=== PATIENT | female | born 1970 | race Caucasian/White ===

== ENCOUNTER 2024-08-17 17:34 | Emergency (ER) | payer OTHER, SELFPAY ==
[2024-08-17 17:35] VITALS: BMI 29.2
[2024-08-17 17:40] VITALS: BP 154/90; PULSE 97; RESP 20; TEMP 36.9; O2SAT 96
--- NOTE | 2024-08-17 17:40 | PD.EDRME ---
Rapid Medical Screening Exam RME Arrival date/time: 08/17/24 17:34 54-year-old female presents to the emergency department complains of nosebleed Chief Complaint: Epistaxis/Nasal Foreign Body
[2024-08-17 18:11] LABS: Basophils # (Auto) 0.1 Thou/mm3 (0.0-0.2); Basophils % (Auto) 1 % (0-2.5); Eosinophils # (Auto) 0.3 Thou/mm3 (0.0-0.5); Eosinophils % (Auto) 3 % (0-10); Hematocrit 41.8 % (36.0-46.0); Immature Granulocytes % (Auto) 0 % (0-0); Immature Granulocytes Auto 0.01 Thou/mm3 (0.00-0.00); Lymphocytes # (Auto) 2.7 Thou/mm3 (1.0-4.8); Lymphocytes % (Auto) 36 % (10-50); Mean Corpuscular HGB Conc 33.5 g/dl (31.0-37.0); Mean Corpuscular Hemoglobin 29.1 pg (25.0-35.0); Mean Corpuscular Volume 87 fL (80-100); Monocytes # (Auto) 0.6 Thou/mm3 (0.0-0.8); Monocytes % (Auto) 8 % (0-12); Neutrophils # (Auto) 3.9 Thou/mm3 (1.8-7.7); Neutrophils % (Auto) 52 % (37-80); Nucleated Red Blood Cell % 0 /100 WBC (0); Platelet Count 279 Thou/mm3 (140-440); RDW Standard Deviation 44.4 fL (36.4-46.3); Red Blood Count 4.81 Miln/mm3 (4.00-5.20); White Blood Count 7.6 Thou/mm3 (3.6-11.0)
[2024-08-17 18:28] LABS: INR 1.1 (0.9-1.3); Partial Thromboplastin Time 26.1 Seconds (22.0-36.0); Prothrombin Time 11.5 Seconds (9.0-12.2)
[2024-08-17 18:31] LABS: Alanine Aminotransferase 9 U/L (10-49); Albumin, Serum 4.5 gm/dL (3.5-5.0); Albumin/Globulin Ratio 1.8 (1.2-2.2); Alkaline Phosphatase 65 U/L (46-116); Anion Gap 10 (7-16); Aspartate Amino Transferase 15 U/L (0-34); BUN/Creatinine Ratio 11 Ratio (12-20); Bilirubin,Total 0.4 mg/dL (0.3-1.2); Blood Urea Nitrogen 11 mg/dL (9-23); Calcium 9.7 mg/dL (8.3-10.6); Calcium (Corrected) 9.7 mg/dL (8.5-10.1); Carbon Dioxide 26.5 mMol/L (20.0-31.0); Chloride 108 mMol/L (98-107); Estimated Creatinine Clearance 56.6 mL/min (>60); Globulin 2.5 gm/dL (2.3-3.5); Glucose 107 mg/dL (74-106); Osmolality,Calculated 286 (275-295); Potassium 3.7 mMol/L (3.4-5.1); Sodium 144 mMol/L (136-145); eGFR > 60 See Note
--- NOTE | 2024-08-17 19:38 | EDNOTE_ITS ---
ED Epistaxis RME/HPI General Chief complaint: Epistaxis/Nasal Foreign Body Stated complaint: NOSE BLLED X20 MINS Time Seen by Provider: 08/17/24 18:12 Arrival date/time: 08/17/24 17:34 RME / HPI RME / HPI Narrative: 54-year-old female presents to the emergency department complains of nosebleed onset of symptoms few minutes prior to ER visit as symptoms bleeding that lasted for 20 minutes. Patient denies any trauma or fall. Denies any fever denies any shortness of breath. Patient is not taking any blood thinner. Patient told me that she is having a lot of stress lately she is not taking any blood pressure medications. Related Data Allergies Allergy/AdvReac Type Severity Reaction Status Date / Time pseudoephedrine Allergy Mild Verified 03/20/09 17:00 NKA Allergy Unknown Uncoded 03/07/03 00:48 Review of Systems Review of Systems Narrative Review of Systems: Review of system reviewed and within normal limits except mentioned in HPI ED Exam Narrative Physical exam: VITAL SIGNS: Reviewed. GENERAL APPEARANCE: Alert and interactive, follows commands, no acute distress, HEAD AND FACE: Non-traumatic. ENT: PERRL, pink conjunctivitis, eyelid no trauma, Mucous membrane moist. NECK: Supple, nontender, no nuchal rigidity. CHEST: No tenderness, no crepitus, no paradoxical movement, no retractions. LUNGS: Clear, well ventilated, symmetric, no rales, no wheezing, no ronchi, no stridor, good breath sounds bilaterally. HEART: Regular rate, regular rhythm, no murmur, no gallops. ABDOMEN: Soft, positive bowel sounds, nondistended, no guarding, nontender, no rebound, no masses, RECTAL: Deferred. GENITAL: Deferred. NEUROLOGICAL: Gross motor function intact sensory function intact, Appropriate for age. MUSCULOSKELETAL: low back nontender, full range of motion. EXTREMITIES: Nontender, full range of motion. SKIN: Color pink, dry, no rash, no lacerations, no abrasions, no contusions. LYMPHATICS: Deferred. Course Quality Measures none Orders Category Date Time Status CBC Stat Lab 08/17/24 17:53 Completed Comprehensive Metabolic Panel Stat Lab 08/17/24 17:53 Completed Partial Thromboplastin Time Stat Lab 08/17/24 17:53 Completed Prothrombin Time with INR Stat Lab 08/17/24 17:53 Completed Vital Signs Vital signs: Vital Signs Temperature 98.5 F 08/17/24 17:40 Pulse Rate 97 08/17/24 17:40 Respiratory Rate 20 08/17/24 17:40 Blood Pressure 154/90 H 08/17/24 17:40 Pulse Oximetry (%) 96 08/17/24 17:40 Oxygen Delivery Method Room Air 08/17/24 17:40 Epistaxis MDM Narrative MDM Narrative:: 54-year-old female presents to the emergency department complains of nosebleed onset of symptoms few minutes prior to ER visit as symptoms bleeding that lasted for 20 minutes. Patient denies any trauma or fall. Denies any fever denies any shortness of breath. Patient is not taking any blood thinner. Patient told me that she is having a lot of stress lately she is not taking any blood pressure medications. Patient's workup today came back normal no anemia noted. She has been in the emergency room for more than 2 hours, and no recurrence of nosebleeding noted. Patient appears nontoxic and hemodynamically stable. Patient discharged home and instructed to follow-up with primary care provider in 24 to 48 hours. Instructed to return to the emergency department immediately if worsening of symptoms Patient data External records reviewed:: None Clinical information provided by:: patient Social determinants that could affect healthcare access:: none Patient has the following chronic illnesses:: None How is presenting disease/condition affected by chronic disease/condition?: no chronic disease Evaluation data The following diagnostics were reviewed and interpreted by me:: lab results Lab and/or radiology exams considered but not ordered:: None Interpretation Summary: Workup unremarkable no anemia Medications / Prescriptions Medications or Prescriptions considered but not ordered:: None Medication administrations:: None Consultations Consultation(s) initiated? (list below): No Diagnosis Epistaxis Differential Diagnosis: nasal bone fracture, anterior epistaxis and posterior epistaxis Most likely diagnosis given after review of the tests above:: epistaxis Admission Indicated Admission indicated?: not indicated Admission Request Was there a request for admission?: No Disposition Plan Disposition Plan: Discharge Discharge Attestation Discharge Attestation: The patient and all family members were given an opportunity to ask questions and understood the discharge instructions. Discharge instructions specifically effects, indications for sooner follow up or return to the emergency department, and the expected course of current diagnosis. Patient condition: Stable Discharge Plan Plan Patient Disposition: HOME (Self Care) Disposition Comment: stable Prescriptions/Referrals Referrals: Marcelino Porter MD [Primary Care Provider] - In 1 week Problem List Clinical Impression: Epistaxis Patient/Caregiver Discharge Instructions Discharge Activity: activity as tolerated Education Materials: ED Epistaxis (Adult) Additional Instructions: Thank you for the opportunity for serving you today. You are stable for discharged . You are advised to: Follow-up with your PCP in 1 to 2 days Return to ED for worsening of symptoms Increase oral fluids Do not blow your nose for the next 48 hours Print Language: [place] Citizen Stand Alone Forms: Nancy Award Info., Patient Portal Info Letter PA/INSIDE OUTSIDE SALES REPRESENTATIVE Supervising Physician PA/INSIDE OUTSIDE SALES REPRESENTATIVE Supervising Physician: MD Randal
== END 2024-08-17 19:54 | disposition home or self-care (01) ==
PROVIDERS: Nurse Practitioner Primary Care; Emergency Provider Emergency Medicine; PCP Family Medicine
DX: R04.0 Epistaxis (principal)
CPT/HCPCS: 36415; 80053; 85025; 85610; 85730; 99283